=== PATIENT | male | born 1940 | race Caucasian/White ===

== ENCOUNTER 2017-12-02 10:14 | Inpatient (IN) | payer MEDICARE, OTHER ==
[~2017-12-02] VITALS: Ht 182.9 cm; Wt 102.4 kg
[~2017-12-02 10:14] MED LIST: ASPI-1264 PO; ATOR20TA66 PO; CLOP75TA35 PO; DICY10CA88 PO; FLO0.4C PO; GLUC-87 PO; MULT-785 PO; NITR0.4T51 SL; POLY17PO10 PO; VITA100C5 PO; VITC500T PO; ZES10T PO; ZOF4T PO
[2017-12-02 10:44] LABS: BASOPHILS % (AUTO) 0.3 % (0-1); EOSINOPHILS % (AUTO) 0.3 % (0-6); HEMATOCRIT 48.6 % (42.0-52.0); HEMOGLOBIN 16.4 g/dl (14.0-17.9); LYMPHOCYTES # (AUTO) 1.7 X10'3 (1.1-4.8); LYMPHOCYTES % (AUTO) 15.6 % (21-51); MEAN CORPUSCULAR HEMOGLOBIN 28.7 PG (27.0-31.0); MEAN CORPUSCULAR HGB CONC 33.7 % (33.0-36.5); MONOCYTES # (AUTO) 0.8 X10'3 (0-0.9); MONOCYTES % (AUTO) 7.3 % (2-12); NEUTROPHILS # (AUTO) 8.1 X10'3 (1.8-7.7); NEUTROPHILS % (AUTO) 76.5 % (42-75); PLATELET COUNT 159 X10'3 (140-440); RED BLOOD COUNT 5.72 X10'6 (4.70-6.10); RED CELL DISTRIBUTION WIDTH 15.7 % (11.5-14.5); WHITE BLOOD COUNT 10.6 X10'3 (4.5-11.0)
[2017-12-02 10:54] LABS: PARTIAL THROMBOPLASTIN TIME 25 SECONDS (22-32); PROTHROMBIN TIME 10.4 SECONDS (9.0-12.0)
[2017-12-02 11:02] LABS: ALANINE AMINOTRANSFERASE 37 U/L (12-78); ALBUMIN 4.1 G/DL (3.4-5.0); ALBUMIN/GLOBULIN RATIO 1.4 (1.1-1.5); ALKALINE PHOSPHATASE 73 IU/L (46-116); ANION GAP 11 (8-16); ASPARTATE AMINO TRANSFERASE 19 U/L (10-37); BILIRUBIN,TOTAL 0.6 MG/DL (0.1-1.0); BLOOD UREA NITROGEN 30 MG/DL (7-18); CALCIUM 9.2 MG/DL (8.5-10.1); CHLORIDE 108 MMOL/L (99-107); GLUCOSE 113 MG/DL (70-104); POTASSIUM 4.1 MMOL/L (3.5-5.1); SODIUM 144 MMOL/L (135-145); TOTAL CARBON DIOXIDE 25.5 MMOL/L (24-32); TROPONIN I < 0.04 NG/ML (0.0-0.05); eGFR 72 ML/MIN
[2017-12-02] MEDS ORDERED: nitroGLYCERIN 0.4mg SUBLingual tab SL PRN (13:40)
[2017-12-02] MEDS ORDERED: normal saline 1000ml 1,000 ML IV SCH (13:42)
[2017-12-02] MEDS ORDERED: magnesium 2GM in 50ml NS 50 ML IV PRN (13:45)
[2017-12-02] MEDS ORDERED: magnesium hydroxide 30ml (MOM) UD suspension PO PRN (13:45)
[2017-12-02] MEDS ORDERED: HYDROcodone/acetaminophen 10/325mg tab PO PRN (13:45)
[2017-12-02] MEDS ORDERED: HYDROcodone/acetaminophen 5mg/325mg tablet PO PRN (13:45)
[2017-12-02] MEDS ORDERED: acetaminophen 325mg tablet PO PRN ×2 (13:45)
[2017-12-02] MEDS ORDERED: potassium Cl 40MEQ/NS 500ml 500 ML IV PRN ×2 (13:45)
[2017-12-02] MEDS ORDERED: mag hydrox/Alum hydrox/simeth 30ml oral suspension PO PRN (13:45)
[2017-12-02] MEDS ORDERED: potassium Cl 20 mEq SR tablet PO PRN ×2 (13:45)
[2017-12-02] MEDS ORDERED: magnesium 4gm in 100ml NS 100 ML IV PRN (13:45)
[2017-12-02] MEDS ORDERED: morphine 2 MG/ML inj. syringe IV PRN (13:45)
[2017-12-02] MEDS ORDERED: magnesium Cl slow-release 64mg tablet PO PRN (13:45)
[2017-12-02] MEDS ORDERED: ondansetron/PF 4mg/2ml inj IV PRN (13:45)
[2017-12-02] MEDS: ondansetron 4mg rapidly disintigrating tab PO SCH ×2 (14:00→19:51)
[2017-12-02 14:30] LABS: CHOL/HDL RATIO 4.5 (0.00-4.99); CHOLESTEROL 148 MG/DL (0-200); HDL CHOLESTEROL 33 MG/DL (35-60); LDL CHOLESTEROL 93 MG/DL (50-100); TRIGLYCERIDES 260 MG/DL (20-135)
[2017-12-02 15:00] VITALS: BP 136/64
[2017-12-02] MEDS ORDERED: clopidogrel 75mg tablet PO ONE (15:45)
[2017-12-02 16:45] VITALS: BP_SYST 132; BP_SYST 135; BP_SYST 145; BP_DIAS 73; BP_DIAS 74; BP_DIAS 76
[2017-12-02] MEDS: atorvastatin 20mg tablet PO SCH (16:48)
[2017-12-02] MEDS ORDERED: NITR0.4T51 SL (16:56)
[2017-12-02] MEDS ORDERED: PRED5TAB PO (17:02)
[2017-12-02] MEDS: clopidogrel 75mg tablet PO SCH (17:20)
[2017-12-02 18:51] VITALS: BP 132/74
[2017-12-02] MEDS: dicyclomine 10 MG capsule PO SCH (19:51)
[2017-12-02] MEDS: polyethylene glycol 3350 17gm powd pack PO SCH (19:51)
[2017-12-02] MEDS ORDERED: temazepam 15mg capsule PO PRN (21:00)
[2017-12-02 22:00] VITALS: BP_SYST 117; BP_SYST 125; BP_SYST 135; BP_DIAS 78; BP_DIAS 99
[2017-12-02 22:37] VITALS: BP_SYST 117; BP_SYST 17; BP_DIAS 78
[2017-12-03] MEDS: ondansetron 4mg rapidly disintigrating tab PO SCH ×3 (01:49→13:45)
[2017-12-03 01:57] VITALS: BP 151/78
[2017-12-03 05:00] VITALS: BP 133/77
[2017-12-03 07:34] LABS: BASOPHILS % (AUTO) 0.2 % (0-1); EOSINOPHILS # (AUTO) 0.1 X10'3 (0-0.9); EOSINOPHILS % (AUTO) 0.9 % (0-6); HEMATOCRIT 42.9 % (42.0-52.0); HEMOGLOBIN 14.6 g/dl (14.0-17.9); LYMPHOCYTES # (AUTO) 1.4 X10'3 (1.1-4.8); MEAN CORPUSCULAR HEMOGLOBIN 28.9 PG (27.0-31.0); MEAN CORPUSCULAR HGB CONC 33.9 % (33.0-36.5); MEAN CORPUSCULAR VOLUME 85.3 FL (78-98); MEAN PLATELET VOLUME 8.6 FL (7.4-10.4); MONOCYTES # (AUTO) 0.6 X10'3 (0-0.9); MONOCYTES % (AUTO) 8.6 % (2-12); NEUTROPHILS # (AUTO) 4.6 X10'3 (1.8-7.7); NEUTROPHILS % (AUTO) 69.3 % (42-75); PLATELET COUNT 145 X10'3 (140-440); RED BLOOD COUNT 5.03 X10'6 (4.70-6.10); RED CELL DISTRIBUTION WIDTH 15.7 % (11.5-14.5); WHITE BLOOD COUNT 6.6 X10'3 (4.5-11.0)
[2017-12-03 07:42] LABS: PROTHROMBIN TIME 10.8 SECONDS (9.0-12.0)
[2017-12-03 07:46] LABS: ALBUMIN 3.4 G/DL (3.4-5.0); ANION GAP 8 (8-16); BLOOD UREA NITROGEN 22 MG/DL (7-18); BUN/CREATININE RATIO 27.5 (5.4-32.0); CALCIUM 8.6 MG/DL (8.5-10.1); CHLORIDE 109 MMOL/L (99-107); GLUCOSE 88 MG/DL (70-104); MAGNESIUM 2.2 MG/DL (1.5-2.4); SODIUM 143 MMOL/L (135-145); TOTAL CARBON DIOXIDE 25.6 MMOL/L (24-32); eGFR > 90 ML/MIN
[2017-12-03 07:50] LABS: POTASSIUM 4.1 MMOL/L (3.5-5.1)
[2017-12-03 08:00] VITALS: BP_SYST 157; BP_SYST 174; BP_SYST 97; BP_DIAS 96
[2017-12-03] MEDS ORDERED: MSM PO SCH (08:00)
[2017-12-03] MEDS ORDERED: tamsulosin 0.4mg capsule PO SCH (08:00)
[2017-12-03] MEDS: dicyclomine 10 MG capsule PO SCH (08:00)
[2017-12-03] MEDS ORDERED: VITAMIN E 100 UNIT PO SCH (08:00)
[2017-12-03] MEDS ORDERED: multivitamins, therapeutics tablet PO SCH (08:00)
[2017-12-03] MEDS ORDERED: GLUCOSAMINE SULFATE PO SCH (08:00)
[2017-12-03] MEDS: clopidogrel 75mg tablet PO SCH (08:00)
[2017-12-03] MEDS ORDERED: K and/or MAG REPLACEMENT MC SCH (08:00)
[2017-12-03] MEDS ORDERED: lisinopril 10 MG tablet PO SCH (08:00)
[2017-12-03] MEDS ORDERED: ascorbic acid 500mg tablet PO SCH (08:00)
[2017-12-03] MEDS ORDERED: clopidogrel 75mg tablet PO SCH (08:00)
[2017-12-03] MEDS ORDERED: aspirin 325mg tablet PO SCH (08:00)
[2017-12-03] MEDS: polyethylene glycol 3350 17gm powd pack PO SCH (08:00)
[2017-12-03 10:00] VITALS: BP 129/74
[2017-12-03] MEDS ORDERED: predniSONE 20 mg tablet PO ONE (12:45)
[2017-12-03] MEDS ORDERED: prednisone 10mg tablet PO ONE (13:15)
[2017-12-03] MEDS: atorvastatin 20mg tablet PO SCH (17:35)
== END 2017-12-03 18:30 | disposition home or self-care (01) | DRG 69 ==
LOC: ER 10:15 → ED HOLD 13:20 → EDBEDREQ 13:37 → ORTHO 4S 14:34
PROVIDERS: ADMIT Internal Medicine; ATTEND Internal Medicine
DX: G45.9 Transient cerebral ischemic attack, unspecified (principal); E78.00 Pure hypercholesterolemia, unspecified; E78.1 Pure hyperglyceridemia; F12.90 Cannabis use, unspecified, uncomplicated; M19.90 Unspecified osteoarthritis, unspecified site; I10 Essential (primary) hypertension; I25.10 Atherosclerotic heart disease of native coronary artery without angina pectoris; Z87.442 Personal history of urinary calculi; Z95.5 Presence of coronary angioplasty implant and graft; Z88.0 Allergy status to penicillin; Z79.899 Other long term (current) drug therapy; Z79.82 Long term (current) use of aspirin
CPT/HCPCS: 36415; 70450; 70551; 71045; 80048; 80053; 80061; 83735; 84484; 85025; 85610; 85730; 87070; 93005; 93306; 93880; 97116; 99285; J7030; J7512